=== PATIENT | female | born 1975 | race Hispanic/Latino ===

== ENCOUNTER → 2020-05-25 09:24 | Outpatient (CLI) | payer OTHER, SELFPAY ==
--- NOTE | ~2020-05-25 | XR_ITS ---
XR foot RT min 3V 05/25/2020 09:39 INDICATION: Foot pain. Heel pain. PROCEDURE: 4 views right foot COMPARISON: No prior studies for comparison. FINDINGS: Fracture, dislocation or subluxation is not identified. There is a small degenerative calca олег enthesophyte at the plantar surface. The soft tissues appear within normal limits. No foreign b odies are identified. IMPRESSION: 1: Small degenerative calcaneal enthesophyte. Reviewed, dictated and finalized at location A. OR OF RADIOLOGY
== END ==
PROVIDERS: PCP Family Medicine; Visit Provider Family Medicine
DX: M79.671 Pain in right foot (principal); M77.31 Calcaneal spur, right foot
CPT/HCPCS: 73630

== ENCOUNTER 2021-06-09 08:41 | Outpatient (CLI) | payer OTHER, SELFPAY ==
--- NOTE | ~2021-06-09 | MM_ITS ---
EXAMINATION: MM screening [facility] BI w joe HISTORY: Screening TECHNIQUE: Craniocaudal and mediolateral oblique 3-D tomosynthesis images were obtained and synthetic 2-D images were generated. CAD analysis was submitted and interpreted. COMPARISON: Comparison to multiple prior studies sequentially, with oldest reviewed study dated 08/18/2016. BREAST PARENCHYMAL COMPOSITION: There are scattered areas of fibroglandular density. FINDINGS: There is distortion of both breasts, consistent with prior explantation of breast implants. There is no evidence of suspicious mass, calcification, or architectural distortion to suggest malig arlet in either breast. There has been no suspicious interval change. IMPRESSION: 1. No mammographic evidence of malignancy. 2. Recommend routine screening mammography in one year. BI-RADS Category 2: Benign finding(s). Reviewed, dictated and finalized at location A. STRAIGHTENER
== END 2021-06-09 08:42 | disposition home or self-care (01) ==
LOC: ANHIMG 08:48
PROVIDERS: PCP Family Medicine; Visit Provider Family Medicine
DX: Z12.31 Encounter for screening mammogram for malignant neoplasm of breast (principal)
CPT/HCPCS: 77063; 77067

== ENCOUNTER 2023-01-24 08:31 | Outpatient (CLI) | payer OTHER, SELFPAY ==
--- NOTE | ~2023-01-24 | MM_ITS ---
EXAMINATION: MM screening [facility] BI w joe HISTORY: Screening TECHNIQUE: Craniocaudal and mediolateral oblique 3-D tomosynthesis images were obtained and synthetic 2-D images were generated. CAD analysis was submitted and interpreted. COMPARISON: Comparison to multiple prior studies sequentially, with oldest reviewed study dated 08/18. BREAST PARENCHYMAL COMPOSITION: Breast composed of scattered areas of fibroglandular density FINDINGS: There is distortion of both breasts which is stable, consistent with previous removal of br east implants. There is no evidence of suspicious mass, calcification, or architectural distortion to suggest malignancy in either breast. There has been no suspicious interval change. IMPRESSION: 1. No mammographic evidence of malignancy. 2. Recommend routine screening mammography in one year. BI-RADS Category 1: Negative Reviewed, dictated and finalized at location A.
== END 2023-01-24 08:32 | disposition home or self-care (01) ==
LOC: ANHIMG 08:37
PROVIDERS: PCP Family Medicine; Visit Provider Family Medicine
DX: Z12.31 Encounter for screening mammogram for malignant neoplasm of breast (principal)
CPT/HCPCS: 77063; 77067

== ENCOUNTER 2024-07-02 09:58 | Outpatient (CLI) | payer OTHER, SELFPAY ==
--- NOTE | ~2024-07-02 | XR_ITS ---
Clinical Indication: Chest pain PA and lateral views of the chest: Comparison: None Findings: The lungs are clear, without evidence of focal consolidation or pleural effusion. Cardiome diastinal silhouette is within normal limits. Bones and soft tissues are unremarkable. Impression: Normal chest. Reviewed, dictated and finalized at location . APPLIANCE WASHING MACHINE MECHANIC Impression: Normal chest.
--- OUTSIDE RECORDS SUMMARY | 2024-07-03 23:04 | XMS_ITS | Referral Summary ---
Author Organization [facility] Address [address] [place] [address] Care Team Providers Care Road Mender Name Role Phone Juan Gallardo MD Primary Care Provider [phone] Source Comments [facility],non-owned Affiliates and Associated Physician Practices is amultiple site organization consisting of ambulatory clinics and hospital sitesin [place], [place], [place] and [place]. This disclosure is being madepursuant to the Care Everywhere program and may not contain all information available regarding this patient. Last updated 18.[facility] Allergies Active Allergy Reactions Criticality Noted Date Comments Diphenhydramine Unknown 12/07/2018 Omalizumab Unknown 12/07/2018 Medications * Be aware that medications may not be up to date on this document. Alwaysverify current medications with the patient. Medication Sig Dispensed Refills Start Date End Date Status fluticasone propionate (FLONASE) 50 MCG/ACT nasal spray Taft 2 sprays into each nostril once daily 1 bottles 12/07/2018 Active albuterol HFA (PROVENTIL;VENTOLIN; PROAIR) 108 (90 Base) MCG/ACT inhaler Inhale 2 puffs by mouth every 6 hours as needed for Shortness of Breath, Wheezing or Cough 1 Inhaler 12/07/2018 Active Social History Tobacco Use Types Packs/Day Years Used Date Smoking Tobacco: Never Assessed Sex and Gender Information Value Date Recorded Sex Assigned at Not on file Gender Identity Not on file Sexual Orientation Not on file Last Filed Vital Signs Vital Sign Reading Time Taken Comments Blood Pressure 122/70 12/07/2018 3:04 PM CDT Pulse 99 12/07/2018 3:04 PM CDT Temperature 37.4 ??C (99.3 ??F) 12/07/2018 3:04 PM CD T Respiratory Rate 16 12/07/2018 3:04 PM CDT Oxygen Saturation 96% 12/07/2018 3:04 PM CDT Inhaled Oxygen Concentration - - Weight 70.3 kg (155 lb) 12/07/2018 3:04 PM CDT Height 157.5 cm (5' 2 ) 12/07/2018 3:04 PM CDT Body Mass Index 28.35 12/07/2018 3:04 PM CDT Plan of Treatment Not on file Care Teams Road Mender Relationship Specialty Start Date End Date Juan Gallardo MD [address] [place] [address] PCP - General Family Medicine 12/07/18
--- OUTSIDE RECORDS SUMMARY | 2024-07-03 23:04 | XMS_ITS | Continuity of Care Document ---
Author Organization [facility] Address [address] [place] [address] Phone Care Team Providers Care Sand Analyst Name Role Phone Roddy Hicks MD Unavailable Unavailable Results Test Name Date and Time Measure Units Reference Range Abnormal Flag Status Comments Panel Description: SARS-CoV- 2 RNA (COVID-19), Qualitative NAAT Final SARS CoV 2 RNA 2019 11:47:5 0 NOT DETECTED NOT DETECTED Final A Not Detected (negative) test result for this testmeans that SARS- CoV-2 RNA was not present in the specimenabove the limit of detection. A negative result does notrule out the possibility of COVID-19 and should not beused as the sole basis for treatment or patient management decisions. If COVID-19 is still suspected, based on exposure history together with other clinical findings,re-testing should be considered [facility]. Laboratory test results shouldalways be considered in the context of clinical observations and epidemiological data in making a finaldiagnosis and patient management decisions. Please review the Fact Sheets and FDA authorizedlabeling available for health care providers andpatients using the following websites:https://www .SYSTRANs.co m/home/Covid-19/HCP/ [employer]/fact-sheet. htmlhttps://www.[employer].com/ivett e/Covid-19/Patients/ [employer]/fact-sheet. html This test has been authorized by the FDA under an Emergency Use Authorization (EUA) for use by [facility]. Due to the current public health emergency, [employer] is receiving a high volume of samples froma wide variety of swabs and media for COVID-19 testing.In order to serve patients during this public healthcrisis, samples from appropriate clinical sources are being tested. Negative test results derived fromspecimens received in non-commercially manufacturedviral collection and transport media, or in media andsample collection kits not yet authorized by FDA forCOVID-19 testing should be cautiously evaluated and thepatient potentially subjected to extra precautions suchas additional clinical monitoring, including collectionof an additional specimen. Methodology: Nucleic Acid Amplification Test (NAAT)includes PCR or TMA Additional information about COVID-19 can be foundat the [employer] website:www.Destineer/Covid19 . Advance Directives Directive Yes / No Effective Date File Name No Information Encounters Encounter Description Practice Location Reason(s) For Visit Diagnoses Date Provider Providers Copied on Encounter [facility] , [address], [place], [place], [id number], tel:[phone] [facility] No Information Kurt Pereyra. [address], [place], [place], [id number], . tel:[phone] Family History Family Member Type Diagnosis Age At Onset No Information Payers Payer name Insurance type Covered democrat ID Authoriza tion(s) No Information Social History Type Description Quantity Date Captured Comments Sex Female Smoking Status No Information Chief Complaint And Reason For Visit No Information Reason For Referral Reason For Referral No Information History Of Present Illness Encounter Date Complaint History Of Prese nt Illness No Information Functional Status Date Functional Assessmen t No Information Instructions Date Instruction Additional Infor mation No Information Assessments Type Assessment Date No Information Patient Care Teams Name Effective Dates (start - stop) Status Members No Information
--- OUTSIDE RECORDS SUMMARY | 2024-07-03 23:04 | XMS_ITS | Clinical Summary ---
Author Organization [facility] Address [address] [place] [address] Phone Care Team Providers Care Corporate Accountant Name Role Phone Juan Gallardo MD Primary Care Provider Allergies Active Allergy Reactions Criticality Noted Date Comments Aspirin Other (see Comments) 12/10/2023 Patient explained this causes inflammation Medications No known medications Family History Medical History Relation Name Comments Heart Attack Father Diabetes Mother Heart Attack Mother Relation Name Status Comments Father Mother Social History Tobacco Use Types Packs/Day Years Used Date Smoking Tobacco: Never Tobacco Cessation:Counseling Given: Not Answered Alcohol Use Standard Drinks/Week Comments No 0 (1 standard drink = 0.6 oz pur e alcohol) socially every 6 months Sexually Active Control Partners Comments Not Currently Comments No Sex and Gender Information Value Date Recorded Sex Assigned at Not on file Legal Sex Female 2:43 PM CDT Gender Identity Not on file Sexual Orientation Not on file Last Filed Vital Signs Vital Sign Reading Time Taken Comments Blood Pressure 130/62 12/10/2023 8:10 AM CDT Pulse 105 12/10/2023 8:10 AM CDT Temperature 36.7 ??C (98.1 ??F) 12/10/2023 8:10 AM CD T Respiratory Rate 20 12/10/2023 8:10 AM CDT Oxygen Saturation 98% 12/10/2023 8:10 AM CDT Inhaled Oxygen Concentration - - Weight 72.6 kg (160 lb) 12/14/2016 2:17 PM CDT Height 157.5 cm (5' 2 ) 12/14/2016 2:17 PM CDT Body Mass Index 29.26 12/14/2016 2:17 PM CDT Plan of Treatment Health Maintenance Due Date Last Done Comments Hepatitis C Virus (HCV) Screening 1974 Discussion re Starting/Frequency of Mammograms 2014 Hepatitis B Immunization (2 of 3 - Hep B Twinrix 3-dose series) 08/08/2017 07/11/2017 Colonoscopy 10/07/2019 Colorectal Cancer Screening 10/07/2019 Cervical Cancer Screening (CCS) 12/14/2021 HPV/Cotest 12/14/2021 12/14/2016 Pap Smear 12/14/2021 12/14/2016 Influenza Immunization (#1) 2024 SARS-COV-2 Immunization (3 - season) 2024 11/01/2020, 10/08/2020 Respiratory Syncytial Virus (RSV) Immunization (Adult) (1 - 1-dose 75+ series) 2049 Human Papilloma Virus (HPV) Screening Discontinued 12/14/2016, 12/14/2016 DTaP/Tdap/Td Immunization Discontinued 2023, 07/11/2017 TdaP Immunization Completed 10/31/2023, 07/11/2017 Meningococcal Immunization (ACWY) Aged Out No longer eligible based on patient's age to complete this topic Pneumococcal Immunization Combined Aged Out No longer eligible based on patient's age to complete this topic Rotavirus Immunization Aged Out No lo nger eligible based on patient's age to complete this topic Procedures Procedure Name Priority Date/Time Associated Diagnosis Comments HUMAN PAPILLOMA VIRUS (HPV) Routine 12/14/2016 3:45 PM CDT Cervical cancer screening PATHOLOGY CYTOLOGY LENS FABRICATING MACHINE TENDER Today 12/14/2016 3:45 PM CDT Cervical cancer screening from Last 3 Months or Most Recently Relevant to Health Maintenance Results * PATHOLOGY CYTOLOGY LENS FABRICATING MACHINE TENDER (12/14/2016 3:45 PM CDT) SPECIMEN ADEQUACY Satisfactory for evaluation. Endocervical cells present. 12/19/2016 8:33 AM CDT [facility] DESCRIPTIVE DIAGNOSIS Negative for intraepithelial lesions. No dysplastic cells present. 12/19/2016 8:33 AM CDT [facility] MATED EXAMINATION Analysis of this sample has been assisted by an automated imaging and review system ([employer] Imaging System, [employer], [place], [place]). This case is further evaluated and finalized by a corporate travel consultant and/or pathologist. 12/19/2016 8:33 AM CDT [facility] DISCLAIMER The PAP smear is a screening test designed to detect cancerous or precancerous cells of the uterine cervix. It is one of the best means available for detection of cervical cancer but still carries an inherent false-negative rate. ??The consequences of a false-negative PAP result can be minimized by adhering to current screening guidelines. ??The following are general guidelines recommended by the ACS, ASCP, ASCCP, and ACOG: ??PAP testing is recommended every three years for women 21-29, Co-Testing , a PAP test in conjunction with an HPV (Human Papillomavirus) test for women ages 30-65, and no PAP or HPV testing for women under the age of 21 or older than 65 unless clinically indicated. 12/19/2016 8:33 AM CDT [facility] Case Report Gynecologic Cytology Report ? Case: [id number] ? Authorizing Provider: ??Cale Magana MD ? Collected: ? 12/14/2016 03:45 PM ? Ordering Location: ? [facility] ? Received: ?12/14/2016 03:45 PM ? GROUP - OBSTETRICS AND ? GYNECOLOGY - [place] ? First Screen: ?Chapin, Alida ? Specimen: ?Vaginal/Endocervi ashley, ENDOCERVIX/VAGINAL ? 12/19/2016 8:33 AM CDT [facility] HPV Reflex if ASCUS? Yes 12/19/2016 8:33 AM CDT [facility] Specimen of unknown material (specimen) (Endocervix/Vagi nal) 12/14/2016 3:45 PM CDT 12/14/2016 3:45 PM CDT us Cale Magana MD PATHOLOGY/CYTOLOGY ORDERABL ES Final Result Performing Organization Address City/State/[facility] Co de Phone Number [facility] [address] [place] [address], * HUMAN PAPILLOMA VIRUS (HPV) (12/14/2016 3:45 PM CDT) HPV OTHER HIGH RISK TYPES, PCR NEGATIVE NEGATIVE 12/19/2016 6:32 AM CDT [facility] Comment: The following Other High Risk types were not detected: 31, 33, 35, 39, 45, 51, 52, 56, 58, 59, 66, and 68. A negative high-risk HPV result does not exclude the possibility of future cytologic HSIL or underlying CIN2-3 or cancer. The presence of PCR inhibitors may cause false negative or invalid results. If concentrations of whole blood in the sample exceed 1.5% (dark red or brown coloration) in PreservCyt solution, there is a likelihood of obtaining a false-negative result. HPV TYPE 16 NEGATIVE NEGATIVE 12/19/2016 6:32 AM CDT [facility] Comment: A negative high-risk HPV result does not exclude the possibility of future cytologic HSIL or underlying CIN2-3 or cancer. The presence of PCR inhibitors may cause false negative or invalid results. If concentrations of whole blood in the sample exceed 1.5% (dark red or brown coloration) in PreservCyt solution, there is a likelihood of obtaining a false-negative result. HPV TYPE 18 NEGATIVE NEGATIVE 12/19/2016 6:32 AM CDT [facility] Comment: A negative high-risk HPV result does not exclude the possibility of future cytologic HSIL or underlying CIN2-3 or cancer. The presence of PCR inhibitors may cause false negative or invalid results. If concentrations of whole blood in the sample exceed 1.5% (dark red or brown coloration) in PreservCyt solution, there is a likelihood of obtaining a false-negative result. Specimen of unknown material (specimen) Non-Phlebotomy Collection / Unknown 12/14/2016 3:45 PM CDT 12/14/2016 3:45 PM CDT Narrative [facility] - 12/19/2016 6:32 AM CDT Performed by Real-Time Polymerase Chain Reaction (PCR) on the [address]. Cale Magana MD LAB SEND OUTS Final Resul t [facility] [address] [place] [address], from Last 3 Months or Most Recently Relevant to Health Maintenance Insurance [facility] Care Teams Corporate Accountant Relationship Specialty Start Date End Date Juan Gallardo MD [address] [place] [id number] PCP - General Family Medicine 12/14/16
--- OUTSIDE RECORDS SUMMARY | 2024-07-03 23:04 | XMS_ITS | Clinical Summary ---
Author Organization [facility] Address [address] [place] [address] Care Team Providers Care Yarn Texturing Machine Operator Name Role Phone Juan Gallardo MD Primary Care Provider [phone] Allergies Active Allergy Reactions Criticality Noted Date Comments Antihistamines - Alkylamine Hives Medium 01/02/20 19 Aspirin Hives Medium 01/01/2019 Medications famotidine (PEPCID) 20 mg tablet Take 1 tablet (20 mg total) by mouth 2 (two) times a day 60 tablet 01/01/2019 Active LORazepam (ATIVAN) 0.5 mg tabletIndicatio ns:anxiety Take 1 tablet (0.5 mg total) by mouth every 6 (six) hours as needed for anxiety 12 tablet 01/01/2019 Active traMADoL (ULTRAM) 50 mg tablet Take 1 tablet (50 mg total) by mouth every 6 (six) hours for 10 doses 10 tablet 10/31/2023 Active Active Problems Problem Noted Date Diagnosed Date 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 By her history and reference from her referring doctor, an outside fur dyer had noticed optic nerve edema around this time. At her initial visit and today, she had good visual acuity in both eyes with no afferent pupillary defect appreciated on examination. Her efferent function is intact. Of note, on examination she has no evidence of optic disc edema. Her ancillary testing is negative for abnormal thickening which would suggest edema but is actually notable for focal thinning of the superior segment of her left optic nerve. There is a small degree of thinning of the superior ganglion cell layer. She additionally has poorly reliable visual weiss however there is suggestion of an inferior field defect on her left visual field. This defect does correlate to the superior focal thinning of the left optic nerve. Her visual weiss show a slight improvement in the left eye today, but again complicated by poor reliability. 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 While the patient is young for this condition, she has features including crowded optic nerve architecture and hyperlipidemia which could be risk factors. She is certainly too young for giant cell arteritis, and her ESR and CRP are normal, so GCA and arteritic ischemic optic neuropathy is excluded. Syphillis has been ruled out with negative RPR and Treponemal testing, and MOG ruled out with negative serum MOG testing. We will see her back in 3-4 months, with repeat VF testing with size 5. Assessment & Plan (10/11/2022 11:22 AM CDT): In summary, Ms. 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 By her history and reference from her referring doctor, an outside fur dyer had noticed optic nerve edema around that time. She reports today subjective improvement in her left eye visual acuity. Her exam today is noticeable for mild improvement of her VA OS from 20/20 to 20/15 with a subtle left ADP. Of note, on examination she has disc pallor OS but no no evidence of optic disc edema. Her ancillary testing today demonstrated improvement of her visual weiss on both eyes on VF testing with size 5 though this may be related to improve performance and reliability compared to the last VF testing which was not size 5. 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 While the patient is young for this condition, she has features including crowded optic nerve architecture and hyperlipidemia which could be risk factors. She is certainly too young for giant cell arteritis, and her ESR and CRP are normal, so GCA and arteritic ischemic optic neuropathy is excluded. Syphillis has been ruled out with negative RPR and Treponemal testing, and MOG ruled out with negative serum MOG testing. Her bMRI was also unremarkable. We will see her back one more time in 3-4 months, with repeat VF testing with size 5. We asked her to call us back if she notices any new or worsening visual symptoms. She agreed with the plan. Assessment & Plan (07/05/2022 10:58 AM ACADEMIC AFFAIRS SPECIALIST): In summary, Ms. 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 By her history and reference from her referring doctor, an outside fur dyer had noticed optic nerve edema around this time. At her initial visit and today, she had good visual acuity in both eyes with no afferent pupillary defect appreciated on examination. Her efferent function is intact. Of note, on examination she has no evidence of optic disc edema. Her ancillary testing is negative for abnormal thickening which would suggest edema but is actually notable for focal thinning of the superior segment of her left optic nerve. There is a small degree of thinning of the superior ganglion cell layer. She additionally has poorly reliable visual weiss however there is suggestion of an inferior field defect on her left visual field. This defect does correlate to the superior focal thinning of the left optic nerve. Her visual weiss show a slight improvement in the left eye today, but again complicated by poor reliability. 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 While the patient is young for this condition, she has features including crowded optic nerve architecture and hyperlipidemia which could be risk factors. She is certainly too young for giant cell arteritis, and her ESR and CRP are normal, so GCA and arteritic ischemic optic neuropathy is excluded. Syphillis has been ruled out with negative RPR and Treponemal testing, and MOG ruled out with negative serum MOG testing. We will see her back in 3-4 months, with repeat VF testing with size 5 stimulus. Optic neuropathy, left 07/05/2022 Enteritis 07/02/2013 Overview (09/15/2016): Enteritis Immunizations Name Administration Dates Next Due Tdap 10/31/2023 Surgical History Surgery Date Site/Laterality Comments OTHER SURGICAL HISTORY excision ovarian tumor LAPAROSCOPY Laparoscopy Medical History Medical History Date Comments Hx Other Medical 2014 Enteritis Hypercholesteremia Family History Medical History Relation Name Comments Arthritis Father arthritis; Heart attack Father Myocardial infa rction; Throat cancer Father's Brother Cancer, th roat; Diabetes Father's Sister 1 Diabetes m ellitus; Breast cancer Father's Sister 2 Cancer, b reast; Heart attack Mother Myocardial infa rction; Relation Name Status Comments Father Father's Brother Father's Sister 1 Father's Sister 2 Mother Social History Tobacco Use Types Packs/Day Years Used Date Smoking Tobacco: Never Smokeless Tobacco: Never Alcohol Use Standard Drinks/Week Comments Never 0 (1 standard drink = 0.6 oz pur e alcohol) AUDIT-C Answer Date Recorded Frequency of Alcohol Consumption Never 01/01/2019 Average Number of Drinks Not on file 019 Frequency of Binge Drinking Not on file 12/10 Personal Safety Answer Date Recorded Have you ever been in or are you currently in a harmful physical or emotional relationship or is someone making you feel afraid or unsafe? Denies 10/31/2023 Comments Unknown Sex and Gender Information Value Date Recorded Sex Assigned at Not on file Legal Sex Female 5:28 PM ACADEMIC AFFAIRS SPECIALIST Gender Identity Not on file Sexual Orientation Not on file Obstetrics History Last Filed Vital Signs Vital Sign Reading Time Taken Comments Blood Pressure 136/85 10/31/2023 8:57 PM CDT Pulse 92 10/31/2023 8:57 PM CDT Temperature 37 ??C (98.6 ??F) 10/31/2023 5:43 PM CDT Respiratory Rate 16 10/31/2023 8:57 PM CDT Oxygen Saturation 99% 10/31/2023 8:57 PM CDT Inhaled Oxygen Concentration - - Weight 77.1 kg (170 lb) 10/31/2023 5:43 PM CDT Height 167.6 cm (5' 6 ) 10/31/2023 5:43 PM CDT Body Mass Index 27.44 10/31/2023 5:43 PM CDT Plan of Treatment Health Maintenance Due Date Last Done Comments Breast Cancer Screening-Mammogram 1975 Cervical Cancer Screening 1975 Depression Screening 1975 Hepatitis C Screening 1974 Regular Well Visit/Exam 18-64 1992 Colon Cancer Screening-Colonoscopy 07/30/2023 07/30/2013 Covid-19 Vaccine (3 - 2023-2 5 season) 2024 11/01/2020, 10/08/2020 Influenza Vaccine (#1) 2024 DTaP/Tdap/Td Vaccine (3 - Td or Tdap) 10/30/2033 10/31/2023, 07/11/2017 Pneumococcal vaccine <65 Aged Out No longer eligible based on patient's age to complete this topic Procedures Procedure Name Priority Date/Time Associated Diagnosis Comments COLONOSCOPY 07/30/2013 12:00 AM ACADEMIC AFFAIRS SPECIALIST from Last 3 Months or Most Recently Relevant to Health Maintenance Results * COLONOSCOPY (07/30/2013 12:00 AM ACADEMIC AFFAIRS SPECIALIST) Anatomical Region Laterality Modality Other Narrative 07/30/2013 12:00 AM ACADEMIC AFFAIRS SPECIALIST Ordered by an unspecified provider. Procedure Note Provider, MD Irma - 07/30/2013 12:00 AM CST PROCEDURE REPORT Patient: TIESHA ENGEL Account: [id number] Room No: : 1975 Patient Type: [facility] Attend.: Wicho Thomas M.D. Admit Date: 07/30/2013 Dict.: Wicho Thomas M.D. Disch. Date: 07/30/2013 NAME OF PROCEDURE: Diagnostic colonoscopy. INDICATIONS: Abdominal pain and constipation. DATE OF PROCEDURE: 07/30/13 PRIMARY CARE PHYSICIAN: Dr. Juan Gallardo. BRIEF HISTORY AND PHYSICAL: The patient is a 37-year-old female withchronic complaints of pain in the lower abdomen with constipation, which isgetting worse. Colonoscopy is being done for evaluation. PROCEDURE: Sedation was provided by anesthesia service. The procedureof colonoscopy including indications and possible complications ofbleeding, infection and reactions to medications were discussed with the patientand consent was obtained. Rectal exam prior to colonoscopy was normal. Thescope was introduced into the rectum and advanced to the cecum, which wasidentified by the ileocecal valve and appendiceal orifice. The quality of thecolon preparation was excellent. The entire visualized colon was normal. Nopolyps and no mass lesions were noted. No inflammatory changes noted. No diverticular changes noted. Retroflex view of the rectum showed smallinternal hemorrhoids. IMPRESSION: 1) Normal colonoscopy. 2) Small internal hemorrhoids. RECOMMENDATIONS: 1) Maintain fiber supplements daily and plenty of fluid intake. 2) Repeat colonoscopy at age 49. Wicho Thomas M.D. AK/tlt TD: 07/31/2013 09:51 CC: Dr. Juan Gallardo Authenticated by Wicho Thomas MD On 08/11/2013 09:14:19 AM [facility] Provider ENDOSCOPY PROCEDURES Leonora l Result from Last 3 Months or Most Recently Relevant to Health Maintenance Insurance [facility] Address: [id number] [place] [address] [facility] Care Teams Yarn Texturing Machine Operator Relationship Specialty Start Date End Date Juan Gallardo MD PCP - General 07/17/13
--- OUTSIDE RECORDS SUMMARY | 2024-07-03 23:04 | XMS_ITS | Clinical Summary ---
Author Organization [facility] Address [address] [place] [address] Care Team Providers Care Supervisor Files Name Role Phone Juan Gallardo MD Primary Care Provider Source Comments [facility],non-owned Affiliates and Associated Physician Practices is amultiple site organization consisting of ambulatory clinics and hospital sitesin [place], [place], [place] and [place]. This disclosure is being madepursuant to the Care Everywhere program and may not contain all information available regarding this patient. Last updated 18.[facility]ue Allergies Active Allergy Reactions Criticality Noted Date Comments Diphenhydramine Unknown 12/07/2018 Omalizumab Unknown 12/07/2018 Medications * Be aware that medications may not be up to date on this document. Alwaysverify current medications with the patient. Medication Sig Dispensed Refills Start Date End Date Status fluticasone propionate (FLONASE) 50 MCG/ACT nasal spray [place] 2 sprays into each nostril once daily [...] 12/07/2018 3:04 PM CDT Plan of Treatment Health Maintenance Due Date Last Done Comments COLOGUARD (AGES 45-75) - COL ON CA SCREENING 1974 COLON MONITORING 1974 COLONOSCOPY - COLON CA SCREENING 1974 CT COLONOGRAPHY - COLON CA SCREENING 1974 Colorectal Cancer Screening 1974 FIT - COLON CA SCREENING 1974 FLEX SIG - COLON CA SCREENING 1974 LIPID TESTING 1974 MAMMOGRAM 1974 PAP SMEAR 1974 HIV SCREENING 1989 HEPATITIS C SCREENING 10/01/1992 DTAP/TDAP/TD VACCINES (1 - Tdap) 1993 HEPATITIS B VACCINE (1 of 3 - 19+ 3-dose series) 1993 SCREENING FOR DIABETES 12/07/2018 COVID-19 VACCINE ( - 2023-2 5 season) 2024 INFLUENZA VACCINE (#1) 2024 DEPRESSION SCREENING 06/11/2024 ZOSTER VACCINE (1 of 2) 2024 HIB VACCINE Aged Out No longer eligi ble based on patient's age to complete this topic HPV VACCINE Aged Out No longer eligi ble based on patient's age to complete this topic MENINGOCOCCAL (Group B) VACCINE Aged Out No longer eligible based on patient's age to complete this topic MENINGOCOCCAL VACCINE Aged Out No cathy rachid eligible based on patient's age to complete this topic PNEUMOCOCCAL VACCINE Aged Out No long er eligible based on patient's age to complete this topic Care Teams Supervisor Files Relationship Specialty Start Date End Date Juan Gallardo MD [address] [place] [address] PCP - General Family Medicine 12/07/18
--- OUTSIDE RECORDS SUMMARY | 2024-07-03 23:04 | XMS_ITS | Patient Health Summary ---
Author Organization [facility] Address [address] [place] [address] Care Team Providers Care Data Processing Manager Name Role Phone Jaun Gallardo MD Primary Care Provider Note from [facility],non-owned Affiliates and Associated Physician Practices is amultiple site organization consisting of ambulatory clinics and hospital sitesin [place], [place], [place] and [place]. This disclosure is being madepursuant to the Care Everywhere program and may not contain all information available regarding this patient. Last updated 18.[facility] Allergies * Diphenhydramine(Unknown) * Omalizumab(Unknown) Medications * Be aware that medications may not be up to date on this document. Alwaysverify current medications with the patient. * fluticasone propionate (FLONASE) 50 MCG/ACT nasal spray(Started 12/07/2018) [place] 2 sprays into each nostril once daily * albuterol HFA (PROVENTIL;VENTOLIN;PROAIR) 108 (90 Base) MCG/ACT inhaler (Started 12/07/2018) Inhale 2 puffs by mouth every 6 hours as needed for Shortness of Breath, Wheezing or Cough Social History Tobacco Use Types Packs/Day Years [...] Mass Index 28.35 12/07/2018 3:04 PM CDT Procedures * STREP A SCREEN - POINT OF CARE (AMB) STL(Performed 12/07/2018) Performed for Acute nasopharyngitis (common cold) Results * STREP A SCREEN - POINT OF CARE (AMB) STL (12/07/2018) Strep A Rapid POCT Negative Negative Strep A Internal Control Present Lot # [id number] Expiration Date 05/10/2020 Throat ENTIRE THROAT (SURFACE REGION OF NECK) / Unknown 12/07/2018 Karyna Bhatt DIRECTOR NON PROFIT-DENTISTRY PROFESSOR LAB - POINT O F CARE ORDERABLES Care Teams Data Processing Manager Relationship Specialty Start Date End Date Juan Gallardo MD [address] [place] [address] PCP - General Family Medicine 12/07/18
--- OUTSIDE RECORDS SUMMARY | 2024-07-03 23:04 | XMS_ITS | Referral Summary ---
Author Organization [facility] Address [address] [place] [address] Care Team Providers Care Web Marketing Strategist Name Role Phone Juan Gallardo MD Primary Care Provider [phone]- [phone] Allergies Active Allergy Reactions Criticality Noted Date [...] reference from her referring doctor, an outside head turbine operator had noticed optic nerve edema around this [...] reference from her referring doctor, an outside head turbine operator had noticed optic nerve edema around that [...] plan. Assessment & Plan (07/05/2022 10:58 AM INSTRUMENT SETTER): In summary, Ms. 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 By her history and reference from her referring doctor, an outside head turbine operator had noticed optic nerve edema around this [...] Name Administration Dates Next Due Tdap 10/31/2023 Social History Tobacco Use Types Packs/Day Years [...] on file Legal Sex Female 5:28 PM INSTRUMENT SETTER Gender Identity Not on file Sexual Orientation [...] 10/31/2023 5:43 PM CDT Plan of Treatment Not on file Procedures Procedure Name Priority Date/Time Associated Diagnosis Comments COLONOSCOPY 07/30/2013 12:00 AM INSTRUMENT SETTER from Last 3 Months or Most Recently Relevant to Health Maintenance Results * COLONOSCOPY (07/30/2013 12:00 AM INSTRUMENT SETTER) Anatomical Region Laterality Modality Other Narrative 07/30/2013 12:00 AM INSTRUMENT SETTER Ordered by an unspecified provider. Procedure Note Provider, MD Irma - 07/30/2013 12:00 AM CST PROCEDURE REPORT Patient: TIESHA ENGEL Account: [id number] Room No: : 1975 Patient Type: [facility] Attend.: Wicho Thomas M.D. Admit Date: 07/30/2013 [...] intake. 2) Repeat colonoscopy at age 49. Gris Sargent/dyana TD: 07/31/2013 09:51 CC: Dr. Juan Gallardo Authenticated by Wicho Thomas MD On 08/11/2013 09:14:19 AM Historical Provider ENDOSCOPY PROCEDURES Leonora l Result from Last 3 Months or Most Recently Relevant to Health Maintenance Insurance [employer] [facility] Member Subscriber Plan / Payer (Ef fective 2019-Present) Name:Tiesha Engel Member ID:[id number] Relation to Subscriber:Self Name:Tiesha Engel Subscriber ID:[id number] Payer ID:[id number] ([facility]) Type:[employer] HMO/PPO Address: [address] [place] [address] [facility] Member Subscriber Plan / Payer (Ef fective 2021-Present) Name:Tiesha Engel Janette Member ID:[id number] Relation to Subscriber:Self Name:Tiesha Engel Janette Subscriber ID:[id number] Payer ID:[id number] ([facility]) Type:[facility] H[facility]/PPO Address: [address] [place] [address] Member Subscriber Plan / Payer (Ef fective 2021-Present) Name:Cedrick Tiesha Janette Member ID:[id number] Relation to Subscriber:Self Name:Tiesha Engel Janette Subscriber ID:[id number] Payer ID:[id number] ([facility]) Type:[facility] HMO/PPO Address: [address] [place] [address] Care Teams Web Marketing Strategist Relationship Specialty Start Date End Date Juan Gallardo MD PCP - General 07/17/13
== END 2024-07-02 09:59 | disposition home or self-care (01) ==
LOC: ANHIMG 10:07
PROVIDERS: PCP Family Medicine; Visit Provider Registered Nurse
DX: R07.9 Chest pain, unspecified (principal)
CPT/HCPCS: 71046

== ENCOUNTER 2024-09-04 09:24 | Outpatient (CLI) | payer OTHER, SELFPAY ==
--- NOTE | ~2024-09-04 | MM_ITS ---
EXAMINATION: MM screening [facility] BI w joe HISTORY: Screening TECHNIQUE: Craniocaudal and mediolateral oblique 3-D tomosynthesis images were obtained and synthetic 2-D images were generated. CAD analysis was submitted and interpreted. COMPARISON: 01/24/2023 and dating back to 08/18/2016 BREAST PARENCHYMAL COMPOSITION: There are scattered areas of fibroglandular density. FINDINGS: Punctate calcifications are detected bilaterally, stable and benign in appearance. Stable parenchymal pattern without suspicious microcalcifications, architectural distortion, discrete masses or significant asymmetry. IMPRESSION: 1. No mammographic evidence of malignancy. 2. Recommend routine screening mammography in one year. BI-RADS Category 2: Benign finding(s). Reviewed, dictated and finalized at location A.
--- OUTSIDE RECORDS SUMMARY | 2024-09-04 10:01 | XMS_ITS | Clinical Summary ---
Author Organization [facility] Address [address] [place] [address] Care Team Providers Care Auto Motor Mechanic Name Role Phone Juan Gallardo MD Primary Care Provider +1- [phone] Allergies Active Allergy Reactions Criticality Noted Date [...] reference from her referring doctor, an outside television program director had noticed optic nerve edema around this [...] reference from her referring doctor, an outside television program director had noticed optic nerve edema around that [...] plan. Assessment & Plan (07/05/2022 10:58 AM HARBOR POLICE LIEUTENANT): In summary, Ms. 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 By her history and reference from her referring doctor, an outside television program director had noticed optic nerve edema around this [...] 07/05/2022 Enteritis 07/02/2013 Overview (09/15/2016): Enteritis Immunizations Immunization Administration Dates Next Due Tdap 10/31/2023 Surgical [...] on file Legal Sex Female 5:28 PM HARBOR POLICE LIEUTENANT Gender Identity Not on file Sexual Orientation Not on file Obstetrics History Last Filed Vital Signs Vital Sign Reading Time Taken Comments Blood Pressure 136/85 10/31/2023 8:57 PM CDT Pulse 92 10/31/2023 8:57 PM CDT Temperature 37 C (98.6 F) 10/31/2023 5:43 PM CDT Respiratory Rate 16 [...] - Td or Tdap) 10/30/2033 10/31/2023, 07/11/2017 Hepatitis B Screening Completed 07/11/2017 Pneumococcal vaccine <65 Aged Out No longer eligible based on patient's age to complete this topic Procedures Procedure Name Priority Date/Time Associated Diagnosis Comments COLONOSCOPY 07/30/2013 12:00 AM HARBOR POLICE LIEUTENANT from Last 3 Months or Most Recently Relevant to Health Maintenance Results * COLONOSCOPY (07/30/2013 12:00 AM HARBOR POLICE LIEUTENANT) Anatomical Region Laterality Modality Other Narrative 07/30/2013 12:00 AM HARBOR POLICE LIEUTENANT Ordered by an unspecified provider. Procedure Note Provider, MD Irma - 07/30/2013 12:00 AM CST PROCEDURE REPORT Patient: TIESHA ENGEL Account: [id number] Room No: : 1975 Patient Type: [facility] Attend.: Wicho Thomas M.D. Admit [...] colonoscopy at age 49. Wicho Thomas M.D. BASHIR/tlt TD: 07/31/2013 09:51 CC: Dr. Juan Gallardo Authenticated by Wicho Thomas MD On 08/11/2013 09:14:19 AM [facility] Provider ENDOSCOPY PROCEDURES Leonora l Result from Last 3 Months or Most Recently Relevant to Health Maintenance [facility] Care Teams Auto Motor Mechanic Relationship Specialty Start Date End Date Juan Gallardo MD PCP - General 07/17/13
--- OUTSIDE RECORDS SUMMARY | 2024-09-04 10:01 | XMS_ITS | Clinical Summary ---
Author Organization [facility] Address [address] [place] [address] Phone Care Team Providers Care Full Fashioned Garment Knitter Name Role Phone Juan Gallardo MD Primary Care Provider [phone] Allergies Active Allergy Reactions Criticality Noted Date [...] 105 12/10/2023 8:10 AM CDT Temperature 36.7 C (98.1 F) 12/10/2023 8:10 AM CDT Respiratory Rate 20 12/10/2023 8:10 AM CDT Oxygen Saturation 98% 12/10/2023 8:10 AM CDT Inhaled Oxygen Concentration - - Weight 72.6 kg (160 lb) 12/14/2016 2:17 PM CDT Height 157.5 cm (5' 2 ) 12/14/2016 2:17 PM CDT Body Mass Index 29.26 12/14/2016 2:17 PM CDT Plan of Treatment Health Maintenance Due Date Last Done Comments Hepatitis C Virus (HCV) Screening 1975 Mammogram 1975 Discussion re Starting/Frequency of Mammograms 2014 Hepatitis B Immunization (2 of 3 - Hep B Twinrix 3-dose series) 08/08/2017 07/11/2017 Colonoscopy 10/07/2019 Colorectal Cancer Screening 10/07/2019 Cervical Cancer Screening (CCS) 12/14/2021 HPV/Cotest 12/14/2021 12/14/2016 Pap Smear 12/14/2021 12/14/2016 Influenza Immunization (#1) 2024 SARS-COV-2 Immunization (3 - season) 2024 11/01/2020, 10/08/2020 Cologuard 2024 Immunochemical Fecal Occult Blood 2024 Respiratory Syncytial Virus (RSV) Immunization (Adult) (1 [...] PM CDT Cervical cancer screening PATHOLOGY CYTOLOGY SALES CENTER ASSOCIATE Today 12/14/2016 3:45 PM CDT Cervical cancer screening from Last 3 Months or Most Recently Relevant to Health Maintenance Results * PATHOLOGY CYTOLOGY SALES CENTER ASSOCIATE (12/14/2016 3:45 PM CDT) SPECIMEN ADEQUACY Satisfactory for evaluation. Endocervical cells present. 12/19/2016 8:33 AM CDT [facility] DESCRIPTIVE DIAGNOSIS Negative for intraepithelial lesions. No dysplastic cells present. 12/19/2016 8:33 AM CDT [facility] MATED EXAMINATION Analysis of this sample has been assisted by an automated imaging and review system ([employer], [employer], [place], [place]). This case is further evaluated and finalized by a commercial hvac service technician and/or pathologist. 12/19/2016 8:33 AM CDT [facility] DISCLAIMER The PAP smear is a screening test designed to detect cancerous or precancerous cells of the uterine cervix. It is one of the best means available for detection of cervical cancer but still carries an inherent false-negative rate. The consequences of a false-negative PAP result can be minimized by adhering to current screening guidelines. The following are general guidelines recommended by the ACS, ASCP, ASCCP, and ACOG: PAP testing is recommended every three years for women 21-29, Co-Testing , a PAP test in conjunction with an HPV (Human Papillomavirus) test for women ages 30-65, and no PAP or HPV testing for women under the age of 21 or older than 65 unless clinically indicated. 12/19/2016 8:33 AM CDT [facility] Case Report Gynecologic Cytology Report Case: [id number] Authorizing Provider: Cale Magana MD Collected: 12/14/2016 03:45 PM Ordering Location: [facility] Received: 12/14/2016 03:45 PM GROUP - OBSTETRICS AND GYNECOLOGY [facility] First Screen: Alida Samson Specimen: Vaginal/Endocervica l, ENDOCERVIX/VAGINAL 12/19/2016 8:33 AM CDT [facility] HPV Reflex if ASCUS? Yes 12/19/2016 8:33 AM CDT [facility] Specimen of unknown material (specimen) (Endocervix/Vagi nal) 12/14/2016 3:45 PM CDT 12/14/2016 3:45 PM CDT us Cale Magana MD PATHOLOGY/CYTOLOGY ORDERABL ES Final Result [facility] [address] [place] [address], [place] * HUMAN PAPILLOMA VIRUS (HPV) (12/14/2016 3:45 PM CDT) HPV OTHER HIGH RISK TYPES, PCR NEGATIVE NEGATIVE 12/19/2016 6:32 AM CDT [facility] Comment: The following Other High Risk [...] 16 NEGATIVE NEGATIVE 12/19/2016 6:32 AM CDT [facility] Comment: A negative high-risk HPV result [...] 18 NEGATIVE NEGATIVE 12/19/2016 6:32 AM CDT [facility] Comment: A negative high-risk HPV result [...] PM CDT 12/14/2016 3:45 PM CDT Narrative [facility] - 12/19/2016 6:32 AM CDT Performed by Real-Time Polymerase Chain Reaction (PCR) on the [address]. Cale Magana MD LAB SEND OUTS Final Resul t [facility] [address] [address], from Last 3 Months or Most Recently Relevant to Health Maintenance Insurance [facility] Care Teams Full Fashioned Garment Knitter Relationship Specialty Start Date End Date Juan Gallardo MD [address] [place] [address] PCP - General Family Medicine 12/14/16
--- OUTSIDE RECORDS SUMMARY | 2024-09-04 10:01 | XMS_ITS | Clinical Summary ---
Author Organization [facility] Address [address] [place] [address] Care Team Providers Care Seasonal Greenery Bundler Name Role Phone Juan Gallardo MD Primary Care Provider [phone] Source Comments [facility],non-owned Affiliates and Associated Physician Practices is amultiple site organization consisting of ambulatory clinics and hospital sitesin [place] and [place]. This disclosure is being madepursuant to the Care Everywhere program and may not contain all information available regarding this patient. Last updated 18.[facility] [employer] Allergies Active Allergy Reactions Criticality Noted Date Comments Diphenhydramine Unknown 12/07/2018 Omalizumab Unknown 12/07/2018 Medications * Be aware that medications may not be up to date on this document. Alwaysverify current medications with the patient. Medication Sig Dispensed Refills Start Date End Date Status fluticasone propionate (FLONASE) 50 MCG/ACT nasal spray Wisdom 2 sprays into each nostril once daily [...] 99 12/07/2018 3:04 PM CDT Temperature 37.4 C (99.3 F) 12/07/2018 3:04 PM CDT Respiratory Rate 16 12/07/2018 3:04 PM CDT [...] to complete this topic MENINGOCOCCAL (Group B) VACC INE SHARED DECISION-MAKING Aged Out No longer eligibl e based on patient's age to complete this topic MENINGOCOCCAL GROUPS A/C/Y/W VACCINE Aged Out No longer eligible b ased on patient's age to complete this topic PNEUMOCOCCAL VACCINE Aged Out No long er eligible based on patient's age to complete this topic Care Teams Seasonal Greenery Bundler Relationship Specialty Start Date End Date Juan Gallardo MD [address] [place] [address] PCP - General Family Medicine 12/07/18
--- OUTSIDE RECORDS SUMMARY | 2024-09-04 10:01 | XMS_ITS | Referral Summary ---
Author Organization [facility] Address [address] [place] [address] Care Team Providers Care Master Printer Name Role Phone Juan Gallardo MD Primary Care Provider [phone] Allergies Active Allergy Reactions Criticality Noted Date [...] reference from her referring doctor, an outside surgical supplies sterilizer had noticed optic nerve edema around this [...] reference from her referring doctor, an outside surgical supplies sterilizer had noticed optic nerve edema around that [...] plan. Assessment & Plan (07/05/2022 10:58 AM PAINT COATING MACHINE OPERATOR): In summary, Ms. 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 By her history and reference from her referring doctor, an outside surgical supplies sterilizer had noticed optic nerve edema around this [...] Immunization Administration Dates Next Due Tdap 10/31/2023 Social [...] on file Legal Sex Female 5:28 PM PAINT COATING MACHINE OPERATOR Gender Identity Not on file Sexual Orientation [...] Associated Diagnosis Comments COLONOSCOPY 07/30/2013 12:00 AM PAINT COATING MACHINE OPERATOR from Last 3 Months or Most Recently Relevant to Health Maintenance Results * COLONOSCOPY (07/30/2013 12:00 AM PAINT COATING MACHINE OPERATOR) Anatomical Region Laterality Modality Other Narrative 07/30/2013 12:00 AM PAINT COATING MACHINE OPERATOR Ordered by an unspecified provider. Procedure Note Provider, MD Irma - 07/30/2013 12:00 AM CST PROCEDURE REPORT Patient: TIESHA ENGEL Account: [id number] Room No: : 1975 Patient Type: [facility] Attend.: Wicho Thomas M.D. Admit Date: 07/30/2013 [...] 2) Repeat colonoscopy at age 49. Gris Sargent/dayna TD: 07/31/2013 09:51 CC: Dr. Juan Gallardo Authenticated by Wicho Thomas MD On 08/11/2013 09:14:19 AM Historical Provider ENDOSCOPY PROCEDURES [facility] Result from Last 3 Months or Most Recently Relevant to Health Maintenance Insurance [facility]/PPO Address: [address] [place] [address] [facility] H[facility]/PPO Address: [place] [address] Care Teams Master Printer Relationship Specialty Start Date End Date Juan Gallardo MD PCP - General 07/17/13
--- OUTSIDE RECORDS SUMMARY | 2024-09-04 10:01 | XMS_ITS | Continuity of Care Document ---
Author Organization [facility] Address [address] [place] [address] Phone Care Team Providers Care Leather Whitener Name Role Phone Roddy Hicks MD Unavailable [...] clinical findings,re-testing should be considered in [facility]. Laboratory test results shouldalways be considered in the context of clinical observations and epidemiological data in making a finaldiagnosis and patient management decisions. Please review the Fact Sheets and FDA authorizedlabeling available for health care providers andpatients using the following websites:https://www .AGRIMAPSs.co m/home/Covid-19/HCP/ [employer]/fact-sheet. htmlhttps://www.[employer].com/ivett e/Covid-19/Patients/ [employer]/fact-sheet. html This test has been authorized by the FDA under an Emergency Use Authorization (EUA) for use by [facility]. Due to the current public health emergency, [facility] is receiving a high volume of samples [...] information about COVID-19 can be foundat the [employer] website:www.AGRIMAPS/Covid19 . Advance Directives Directive Yes / No Effective Date File Name No Information Encounters Encounter Description Practice Location Reason(s) For Visit Diagnoses Date Provider Providers Copied on Encounter [facility] , [address], [place], [place], [id number], tel:[phone] [facility] [place] No Information Kurt Pereyra. [address], [place], [place], [address], [place]. tel:[phone] Family History Family Member Type Diagnosis Age At Onset No Information Payers Payer name Insurance type Covered libertarian ID Authoriza tion(s) No Information Social History [...]
== END 2024-09-04 09:25 | disposition home or self-care (01) ==
PROVIDERS: PCP Family Medicine; Visit Provider Registered Nurse
DX: Z12.31 Encounter for screening mammogram for malignant neoplasm of breast (principal)
CPT/HCPCS: 77063; 77067

== ENCOUNTER 2024-09-25 09:23 | Outpatient (CLI) | payer OTHER, SELFPAY ==
--- NOTE | 2024-09-25 09:37 | EST_ITS ---
Patient Info Name: Tiesha Philip Age: 48 years : 1975 Gender: Female Ht: 60 in Wt: 160 lbs BSA: 1.78 m2 Exam Date: 09/25/2024 9:58 AM Exam Location: Echo Lab Patient Status: Outpatient Admit Date: 09/25/2024 Staff Ordering Physician: Mike Kim DO Attending Provider: Mike Kim DO Exercise Technologist: Debbi Nam RDCS Exercise Physician: Mike Kim DO Exam Type: CA stress test treadmill Study Info Indications R07.9 - Chest pain, unspecified A treadmill exercise stress test was performed. Summary 1. 1. Negative Flavio exercise stress test for ischemic ST changes by ECG criteria. 2. 2. Good functional capacity, achieving 10 METs of workload. 3. Hypertensive response to exercise. 4. 4. Appropriate HR response to exercise. 5. 5. Appropriate HR recovery at 1 minute post exercise. 6. 6. No imaging with stress testing. 7. 7. Patient informed of the above results. Protocol: Flavio Stress ECG Details Stage: REST Duration (min): 0 min : 53 sec Speed (mph): 0.0 Grade (%): 0 HR (bpm): 71 SBP (mmHg): 123 DBP (mmHg): 86 METS: --- Stage: REST Duration (min): 5 min : 27 sec Speed (mph): 0.0 Grade (%): 0 HR (bpm): 81 SBP (mmHg): 123 DBP (mmHg): 86 METS: --- Stage: STAGE 1 Duration (min): 1 min : 0 sec Speed (mph): 1.7 Grade (%): 10 HR (bpm): 109 SBP (mmHg): 123 DBP (mmHg): 86 METS: --- Stage: STAGE 1 Duration (min): 2 min : 0 sec Speed (mph): 1.7 Grade (%): 10 HR (bpm): 107 SBP (mmHg): 123 DBP (mmHg): 86 METS: --- Stage: STAGE 1 Duration (min): 3 min : 0 sec Speed (mph): 1.7 Grade (%): 10 HR (bpm): 105 SBP (mmHg): 125 DBP (mmHg): 98 METS: --- Stage: STAGE 2 Duration (min): 1 min : 0 sec Speed (mph): 2.5 Grade (%): 12 HR (bpm): 120 SBP (mmHg): 125 DBP (mmHg): 98 METS: --- Stage: STAGE 2 Duration (min): 2 min : 0 sec Speed (mph): 2.5 Grade (%): 12 HR (bpm): 123 SBP (mmHg): 146 DBP (mmHg): 86 METS: --- Stage: STAGE 2 Duration (min): 3 min : 0 sec Speed (mph): 2.5 Grade (%): 12 HR (bpm): 129 SBP (mmHg): 146 DBP (mmHg): 86 METS: --- Stage: STAGE 3 Duration (min): 1 min : 0 sec Speed (mph): 3.4 Grade (%): 14 HR (bpm): 145 SBP (mmHg): 146 DBP (mmHg): 86 METS: --- Stage: STAGE 3 Duration (min): 2 min : 0 sec Speed (mph): 3.4 Grade (%): 14 HR (bpm): 154 SBP (mmHg): 210 DBP (mmHg): 71 METS: --- Stage: STAGE 3 Duration (min): 2 min : 0 sec Speed (mph): 3.4 Grade (%): 14 HR (bpm): 153 SBP (mmHg): 210 DBP (mmHg): 71 METS: --- Stage: RECOVERY Duration (min): 0 min : 59 sec Speed (mph): 0.0 Grade (%): 0 HR (bpm): 123 SBP (mmHg): 139 DBP (mmHg): 76 METS: --- Stage: RECOVERY Duration (min): 1 min : 59 sec Speed (mph): 0.0 Grade (%): 0 HR (bpm): 99 SBP (mmHg): 139 DBP (mmHg): 76 METS: --- Stage: RECOVERY Duration (min): 2 min : 59 sec Speed (mph): 0.0 Grade (%): 0 HR (bpm): 87 SBP (mmHg): 123 DBP (mmHg): 85 METS: --- Stage: RECOVERY Duration (min): 3 min : 1 sec Speed (mph): 0.0 Grade (%): 0 HR (bpm): 87 SBP (mmHg): 123 DBP (mmHg): 85 METS: --- Rest HR: 81 bpm Peak HR: 154 bpm Rest Sys BP: 123 mmHg Peak Sys BP: 210 mmHg Max Pred HR: 171 bpm % Max Pred HR: 90 % Target HR: 145 bpm Max RPP: 32,340 bpm*mmHg Truong Score: 0 BP Response: Patient exhibited a hypertensive response with stress Termination Reason: Reached target heart rate or workload Cardiac Symptoms: Shortness of breath Max ST Seg Deviation: -1.60 mm Total Time: 8 min : 0 sec Rest Archer BP: 86 mmHg Peak Archer BP: 71 mmHg Angina Score: None Total METS: 10.3 Resting ECG Sinus rhythm. Stress ECG No ST changes. Arrhythmias None. Report Signatures
--- OUTSIDE RECORDS SUMMARY | 2024-09-25 09:57 | XMS_ITS | Clinical Summary ---
Author Organization [facility] Address [address] [place] [address] Care Team Providers Care Computer Consultant Name Role Phone Juan Gallardo MD Primary Care Provider [phone] Allergies Active Allergy Reactions Criticality Noted Date [...] reference from her referring doctor, an outside emergency medical tech had noticed optic nerve edema around this [...] reference from her referring doctor, an outside emergency medical tech had noticed optic nerve edema around that [...] plan. Assessment & Plan (07/05/2022 10:58 AM BIOLOGIST AIDE): In summary, Ms. 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 By her history and reference from her referring doctor, an outside emergency medical tech had noticed optic nerve edema around this [...] on file Legal Sex Female 5:28 PM BIOLOGIST AIDE Gender Identity Not on file Sexual Orientation [...] 5 season) 2024 11/01/2020, 10/08/2020 Influenza Vaccine (Season Ended) 2025 DTaP/Tdap/Td Vaccine (3 - Td or Tdap) 10/30/2033 10/31/2023, 07/11/2017 Hepatitis B Screening Completed 07/11/2017 Pneumococcal vaccine <65 Aged Out No longer eligible based on patient's age to complete this topic Procedures Procedure Name Priority Date/Time Associated Diagnosis Comments COLONOSCOPY 07/30/2013 12:00 AM BIOLOGIST AIDE from Last 3 Months or Most Recently Relevant to Health Maintenance Results * COLONOSCOPY (07/30/2013 12:00 AM BIOLOGIST AIDE) Anatomical Region Laterality Modality Other Narrative 07/30/2013 12:00 AM BIOLOGIST AIDE Ordered by an unspecified provider. Procedure Note Provider, MD Irma - 07/30/2013 12:00 AM CST PROCEDURE REPORT Patient: TIESHA ENGEL Account: [id number] Room No: : 1975 Patient Type: [facility] Attend.: Wicho Thomas M.D. Admit Date: [...] Wicho Thomas MD On 08/11/2013 09:14:19 AM [facility] Provider ENDOSCOPY PROCEDURES Leonora l Result from Last 3 Months or Most Recently Relevant to Health Maintenance Insurance [facility] Care Teams Computer Consultant Relationship Specialty Start Date End Date Juan Gallardo MD PCP - General 07/17/13
--- OUTSIDE RECORDS SUMMARY | 2024-09-25 09:57 | XMS_ITS | Referral Summary ---
Author Organization [facility] Address [address] [place] [address] Care Team Providers Care Welfare Case Worker Name Role Phone Juan Gallardo MD Primary Care Provider [phone] Allergies Active Allergy Reactions Criticality Noted Date [...] reference from her referring doctor, an outside inter fold roll cutter had noticed optic nerve edema around this [...] reference from her referring doctor, an outside inter fold roll cutter had noticed optic nerve edema around that [...] plan. Assessment & Plan (07/05/2022 10:58 AM ORGANIC CHEMIST): In summary, Ms. 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 By her history and reference from her referring doctor, an outside inter fold roll cutter had noticed optic nerve edema around this [...] on file Legal Sex Female 5:28 PM ORGANIC CHEMIST Gender Identity Not on file Sexual Orientation [...] Associated Diagnosis Comments COLONOSCOPY 07/30/2013 12:00 AM ORGANIC CHEMIST from Last 3 Months or Most Recently Relevant to Health Maintenance Results * COLONOSCOPY (07/30/2013 12:00 AM ORGANIC CHEMIST) Anatomical Region Laterality Modality Other Narrative 07/30/2013 12:00 AM ORGANIC CHEMIST Ordered by an unspecified provider. Procedure Note Provider, MD Irma - 07/30/2013 12:00 AM CST PROCEDURE REPORT Patient: TIESHA ENGEL Account: [id number] Room No: : 1975 Patient Type: [facility] Attend.: Wicho Thomas M.D. Admit Date: 07/30/2013 Dict.: Wicho Thoams M.D. Disch. Date: 07/30/2013 NAME OF PROCEDURE: [...] Recently Relevant to Health Maintenance [facility] Care Teams Welfare Case Worker Relationship Specialty Start Date End Date Juan Gallardo MD PCP - General 07/17/13
--- OUTSIDE RECORDS SUMMARY | 2024-09-25 09:57 | XMS_ITS | Clinical Summary ---
Author Organization [facility] Address [address] [place] [address] Phone Care Team Providers Care Property Supervisor Name Role Phone Juan Gallardo MD Primary Care Provider [phone] Allergies Active Allergy Reactions Criticality Noted Date [...] PM CDT Cervical cancer screening PATHOLOGY CYTOLOGY DIRECT SERVICE PROFESSIONAL Today 12/14/2016 3:45 PM CDT Cervical cancer screening from Last 3 Months or Most Recently Relevant to Health Maintenance Results * PATHOLOGY CYTOLOGY DIRECT SERVICE PROFESSIONAL (12/14/2016 3:45 PM CDT) SPECIMEN ADEQUACY Satisfactory for evaluation. Endocervical cells present. 12/19/2016 8:33 AM CDT [facility] DESCRIPTIVE DIAGNOSIS Negative for intraepithelial lesions. No dysplastic cells present. 12/19/2016 8:33 AM CDT [facility] at 0833 CDT AUTOMATED EXAMINATION Analysis of this sample has been assisted by an automated imaging and review system ([employer], [employer], [place], [place]). This case is further evaluated and finalized by a shank inspector and/or pathologist. 12/19/2016 8:33 AM CDT [facility] DISCLAIMER The PAP smear is a [...] unless clinically indicated. 12/19/2016 8:33 AM CDT [facility] Case Report Gynecologic Cytology Report Case: [id number] Authorizing Provider: Cale Magana MD Collected: 12/14/2016 03:45 PM Ordering Location: [facility] Received: 12/14/2016 03:45 PM GROUP - OBSTETRICS AND GYNECOLOGY [facility] First Screen: Alida Samson Specimen: Vaginal/Endocervica l, ENDOCERVIX/VAGINAL 12/19/2016 8:33 AM CDT [facility] HPV Reflex if ASCUS? Yes 12/19/2016 8:33 AM CDT [facility] Specimen of unknown material (specimen) (Endocervix/Vagi nal) 12/14/2016 3:45 PM CDT 12/14/2016 3:45 PM CDT us Cale Magana MD PATHOLOGY/CYTOLOGY ORDERABL ES Final Result [facility] [address] [place] [address], [place] * HUMAN PAPILLOMA VIRUS (HPV) (12/14/2016 3:45 PM CDT) HPV OTHER HIGH RISK TYPES, PCR NEGATIVE NEGATIVE 12/19/2016 6:32 AM CDT [facility] Comment: The following Other High Risk [...] 16 NEGATIVE NEGATIVE 12/19/2016 6:32 AM CDT [facility] Comment: A negative high-risk HPV result [...] 18 NEGATIVE NEGATIVE 12/19/2016 6:32 AM CDT [facility] Comment: A negative high-risk HPV result [...] PM CDT 12/14/2016 3:45 PM CDT Narrative [facility] - 12/19/2016 6:32 AM CDT Performed by Real-Time Polymerase Chain Reaction (PCR) on the [address]. Cale Magana MD LAB SEND OUTS Final Resul t [facility] [address] [address], from Last 3 Months or Most Recently Relevant to Health Maintenance Insurance [facility] Care Teams Property Supervisor Relationship Specialty Start Date End Date Juan Gallardo MD [address] [place] [address] PCP - General Family Medicine 12/14/16
--- OUTSIDE RECORDS SUMMARY | 2024-09-25 09:57 | XMS_ITS | Continuity of Care Document ---
Author Organization [facility] Address [address] [place] [address] Phone Care Team Providers Care Ribbon Hanking Machine Operator Name Role Phone Roddy Hicks MD Unavailable [...] clinical findings,re-testing should be considered [facility]. Laboratory test results shouldalways be considered in the context of clinical observations and epidemiological data in making a finaldiagnosis and patient management decisions. Please review the Fact Sheets and FDA authorizedlabeling available for health care providers andpatients using the following websites:https://www .Passados.co m/home/Covid-19/HCP/ [facility]/fact-sheet. htmlhttps://www.FoodBuzz.com/ivett e/Covid-19/Patients/ [facility]/fact-sheet. html This test has been authorized by the FDA under an Emergency Use Authorization (EUA) for use by [facility]. Due to the current public health emergency, [facility] is receiving a high volume of samples [...] information about COVID-19 can be foundat the hoohbe website:www.FlyClip/Covid19 . Advance Directives Directive Yes / No Effective Date File Name No Information Encounters Encounter Description Practice Location Reason(s) For Visit Diagnoses Date Provider Providers Copied on Encounter [facility] , [address], [place], [place], [id number], tel:[phone] [facility] No Information Kurt Pereyra. [address], [place], [place], [id number], [place]. tel:[phone] Family History Family Member Type Diagnosis Age At Onset No Information Payers Payer name Insurance type Covered constitution party ID Authoriza tion(s) No Information Social History [...]
--- OUTSIDE RECORDS SUMMARY | 2024-09-25 09:57 | XMS_ITS | Clinical Summary ---
Author Organization [facility] Address [address] [place] [address] Care Team Providers Care Instructional Support Assistant Name Role Phone Juan Gallardo MD Primary Care Provider Source Comments [facility],non-owned Affiliates and Associated Physician Practices is amultiple site organization consisting of ambulatory clinics and hospital sitesin [place], [place], [place] and [place]. This disclosure is being madepursuant to the Care Everywhere program and may not contain all information available regarding this patient. Last updated 18.[facility] Allergies Active Allergy Reactions Criticality Noted Date Comments Diphenhydramine Unknown 12/07/2018 Omalizumab Unknown 12/07/2018 Medications * Be aware that medications may not be up to date on this document. Alwaysverify current medications with the patient. fluticasone propionate (FLONASE) 50 MCG/ACT nasal spray [place] 2 sprays into each nostril once daily 1 bottles 9 Active albuterol HFA (PROVENTIL;VENT RAPHAEL;PROAIR) 108 (90 Base) MCG/ACT inhaler Inhale 2 puffs by mouth every 6 hours as needed for Shortness of Breath, Wheezing or Cough 1 Inhaler 9 Active Social History Tobacco Use Types Packs/Day Years Used Date Smoking Tobacco: Never Assessed Comments Unknown Sex and Gender Information Value Date Recorded Sex Assigned at Not on file Legal Sex Female 2:33 PM CDT Gender Identity Not on file [...] SCREENING 1974 LIPID TESTING 1974 MAMMOGRAM 1974 HIV SCREENING 1989 HEPATITIS C SCREENING 10/01/1992 DTAP/TDAP/TD VACCINES (1 - Tdap) 1993 HEPATITIS B VACCINE (1 of 3 - 19+ 3-dose series) 1993 SCREENING FOR DIABETES 12/07/2018 COVID-19 VACCINE (1 - 2023-2 5 season) 2024 DEPRESSION SCREENING 06/11/2024 ZOSTER VACCINE (1 of 2) 2024 INFLUENZA VACCINE (Season Ended) 2025 HIB VACCINE Aged Out No longer eligi [...] on patient's age to complete this topic Insurance [employer] Care Teams Instructional Support Assistant Relationship Specialty Start Date End Date Juan Gallardo MD [address] [place], [place] [id number] PCP - General Family Medicine 12/07/18
== END 2024-09-25 09:24 | disposition home or self-care (01) ==
PROVIDERS: PCP Family Medicine; Visit Provider Internal Medicine Cardiovascular Disease
DX: R07.9 Chest pain, unspecified (principal)
CPT/HCPCS: 93017

== ENCOUNTER 2025-03-19 00:57 | Day surgery (SDC) | payer OTHER, SELFPAY ==
[2025-03-05 15:45] VITALS: BMI 33.2
[2025-03-19 08:09] VITALS: BP 131/71; PULSE 80; RESP 16; TEMP 36.4; O2SAT 100; BMI 33.2
[2025-03-19 08:15] LABS: BEDSIDEPREGUCG Negative (Negative)
[2025-03-19] MEDS: LACTATED RINGERS 1,000 ML 150 ML IV CONT (08:21)
--- NOTE | 2025-03-19 08:46 | WPDANESEPPF ---
Anes - Initial Pre Proc Eval Procedure: Operation Date: 03/19/25 09:00 Proposed Procedures p Diagnostic Colonoscopy - Luca Nuñez MD Date/Time: 03/19/25 08:46 Surgeon: Luca Nuñez MD Pre Op Diagnosis: GERD, Unspecified abdominal pain Patient Data Age: 49 Gender: F Height: 1.52 m Weight: 77.1 kg Last Vital Signs Temp 97.5 F L 03/19/25 08:09 Pulse 80 03/19/25 08:09 Resp 16 03/19/25 08:09 BP 131/71 03/19/25 08:09 Pulse Ox 100 03/19/25 08:09 O2 Del Method Room Air 03/19/25 08:09 Allergies Allergy/AdvReac Type Severity Reaction Status Date / Time pyrantel Allergy Unknown Patient Verified 03/05/25 15:44 stated she is allergic to everything. Home Medications ?Medication ?Instructions ?Recorded ?Confirmed ?Type ezetimibe 10 mg tablet 10 mg PO DAILY #30 tabs 09/30/24 03/19/25 Rx tramadol 50 mg tablet 50 mg PO DAILY PRN pain 02/16/25 03/05/25 History Laboratory Tests 03/19/25 08:13 POC Urine HCG, Qual Negative (Negative) Patient hx anesthesia problems: none Family hx anesthesia problems: none Results Review: All pre-operative results and documents have been reviewed as part of the pre-operative evaluation. [facility] Past Medical History Medical History Kidney stones Overweight (BMI 25.0-29.9) Abdominal pain Dyslipidemia Fatty liver Hyperlipidemia TIA (transient ischemic attack) Family History Family History Other Cerebrovascular accident Diabetes mellitus Family history of allergic disorder Family history of malignant neoplasm Hypertension Social History Social History Smoking status: Never smoker Alcohol intake: current Substance use type: does not use Anes - Eval Final PreProcedure Day of Procedure 03/19/25 08:46 Patient weight: overweight Heart: regular rate and rhythm Lungs: clear to auscultation Airway: Mallampati scale class II Last oral intake: >/= 8 hours ASA classification: III Emergent: no Anesthetic plan: proceed Anesthesia type and monitoring: general GIVS and standard monitoring Results Review: All pre-operative results and documents have been reviewed as part of the pre-operative evaluation. Informed Consent: The patient's anesthetic plan and its attendant risks and benefits were discussed with the patient/family/POA. Questions were solicited and answers provided to the satisfaction of the patient/family/POA.
--- NOTE | 2025-03-19 08:56 | PM.IMHP ---
H&P: HPI History of Present Illness Date/Time: 03/19/25 08:56 Chief Complaint: Screening colonoscopy Narrative: This is the patient's first colonoscopy. There are no GI symptoms and there is no family history of colorectal cancer. Review of Systems Review of Systems: All systems reviewed & are unremarkable except as noted in HPI and below PMFSH Past Medical History Medical History Kidney stones Overweight (BMI 25.0-29.9) Abdominal pain Dyslipidemia Fatty liver Hyperlipidemia TIA (transient ischemic attack) Family History Family History Other Cerebrovascular accident Diabetes mellitus Family history of allergic disorder Family history of malignant neoplasm Hypertension Social History Social History Smoking status: Never smoker Alcohol intake: current Substance use type: does not use Meds Home Medications and Allergies Home Medications ?Medication ?Instructions ?Recorded ?Confirmed ?Type ezetimibe 10 mg tablet 10 mg PO DAILY #30 tabs 09/30/24 03/19/25 Rx tramadol 50 mg tablet 50 mg PO DAILY PRN pain 02/16/25 03/05/25 History Allergies Allergy/AdvReac Type Severity Reaction Status Date / Time pyrantel Allergy Unknown Patient Verified 03/05/25 15:44 stated she is allergic to everything. Vital Signs Vital Signs - 24 hr 03/19/25 08:09 Temperature 97.5 F L Pulse Rate 80 Respiratory Rate 16 Blood Pressure 131/71 Pulse Oximetry 100 Oxygen Delivery Room Air Exam Const: General: cooperative and healthy appearing Resp: Effort & Inspection: normal respiratory effort and able to speak in complete sentences Auscultation: clear to auscultation bilaterally Cardio: Rate: regular rate Rhythm: regular rhythm GI: Inspection: normal to inspection GI Palp: No No hepatosplenomegaly present Auscultation: normal bowel sounds Rectal Exam: deferred Skin: General skin exam: normal color Psych: Appearance: grossly normal Mental Status: mental status grossly normal Assessment and Plan Assessment and plan (1) Encounter for screening colonoscopy: Code(s): Z12.11 - Encounter for screening for malignant neoplasm of colon Status: Acute Assessment and Plan: The patient is deemed a good candidate for the procedure. Consent signed. Will proceed.
[2025-03-19 09:24] VITALS: BP 103/61; PULSE 80; RESP 18; O2SAT 98
[2025-03-19 09:34] VITALS: BP 105/65; PULSE 72; RESP 18; O2SAT 100
[2025-03-19 09:44] VITALS: BP 110/73; PULSE 68; RESP 18; O2SAT 100
== END 2025-03-19 09:56 | disposition home or self-care (01) ==
PROVIDERS: Registered Nurse; PCP Family Medicine; Referring Provider Nurse Practitioner Family; Visit Provider Internal Medicine Gastroenterology
PROC: 0DJD8ZZ Inspection of Lower Intestinal Tract, Via Natural or Artificial Opening Endoscopic (ICD-10-PCS; CPT 45378; principal; 2025-03-19 09:00)
DX: Z12.11 Encounter for screening for malignant neoplasm of colon (principal); K57.30 Diverticulosis of large intestine without perforation or abscess without bleeding; E78.5 Hyperlipidemia, unspecified; Z79.891 Long term (current) use of opiate analgesic; Z87.442 Personal history of urinary calculi; Z86.73 Personal history of transient ischemic attack (TIA), and cerebral infarction without residual deficits; Z80.9 Family history of malignant neoplasm, unspecified
CPT/HCPCS: 45378; J2003; J2704; J7120